=== PATIENT | female | born 1945 | race Caucasian/White ===

== ENCOUNTER 2021-01-23 07:51 | Day surgery (SDC) | payer MEDICARE, OTHER ==
[~2021-01-23] VITALS: Ht 167.6 cm; Wt 87.7 kg
[2021-01-23 08:10] VITALS: BP 123/53
[2021-01-23] MEDS ORDERED: AMLO5TAB16 PO (08:50)
[2021-01-23] MEDS ORDERED: ALBU8.5H8 INH (08:50)
[2021-01-23] MEDS ORDERED: ATRIN IH (08:51)
[2021-01-23] MEDS ORDERED: DULO20CA18 PO (08:52)
[2021-01-23] MEDS ORDERED: BUPR-344 PO (08:52)
[2021-01-23] MEDS ORDERED: TOLT4CAP PO (08:53)
[2021-01-23] MEDS ORDERED: LOSA1TAB39 PO (08:54)
[2021-01-23] MEDS ORDERED: METO-411 PO (08:54)
[2021-01-23] MEDS ORDERED: PANT-47 PO (08:55)
[2021-01-23] MEDS ORDERED: POTA-82 PO (08:56)
[2021-01-23] MEDS ORDERED: MIDAZolam 1 MG/ML 5ML VIAL ONE (08:58)
[2021-01-23] MEDS ORDERED: fentaNYL/PF 50MCG/1 ML 2ML syringe ONE (08:58)
[2021-01-23] MEDS ORDERED: MAGN250T11 PO (09:06)
[2021-01-23] MEDS ORDERED: CHOL400C8 (09:06)
[2021-01-23] MEDS ORDERED: NAPR220T67 PO (09:07)
[2021-01-23] MEDS ORDERED: CALC-336 PO (09:07)
[2021-01-23] MEDS ORDERED: DOCU-337 (09:08)
[2021-01-23 10:32] VITALS: BP 122/80
[2021-01-23 10:42] VITALS: BP 127/74
[2021-01-23 10:52] VITALS: BP 126/85
[2021-01-23 11:02] VITALS: BP 124/64
== END 2021-01-23 11:10 | disposition home or self-care (01) ==
LOC: GI LAB 07:51
PROVIDERS: ATTEND Internal Medicine Gastroenterology
DX: R19.5 Other fecal abnormalities (principal); K57.30 Diverticulosis of large intestine without perforation or abscess without bleeding
CPT/HCPCS: 45378; 99153; G0500; J2250; J3010; J7040; 99152; A4620